=== PATIENT | female | born 1985 | race Caucasian/White ===

== ENCOUNTER 2017-10-29 09:46 | Emergency (ER) | payer OTHER ==
[2016-02-20 19:05] VITALS: BP 134/86
[~2017-10-29] VITALS: Ht 157.5 cm; Wt 79.4 kg
[~2017-10-29 09:46] MED LIST: ASPI-482 PO
[2017-10-29] MEDS ORDERED: CYCL-331 PO (10:31)
[2017-10-29] MEDS ORDERED: HYDR-971 PO (10:31)
[2017-10-29] MEDS ORDERED: IBUP800T19 PO (10:31)
--- NOTE | 2017-10-29 10:31 | PHYS DOC ---
Past History Past Medical History: No Pertinent History Past Surgical History: Tonsillectomy, Tubal ligation Smoking: Non-smoker Alcohol Use: Occasionally Drug Use: None Adult General Chief Complaint Chief Complaint: Neck Pain HPI HPI 32-year-old female patient states she woke up 3 days ago with pain in left side of her neck that getting worse with movement of her neck. Patient states she applied ice and heat and topical ointment without improvement of the pain and her pain gradually getting force. Patient states her pain increased from 2 without movement to 9 with movement of her neck. She denies fever and chills, injuries, focal neuro deficit, nausea and vomiting. Patient states she had right -sided neck pain several years ago that last for shortness of time. Patient denies . Review of Systems Review of Systems Constitutional: Denies fever or chills [] Eyes: Denies change in visual acuity, redness, or eye pain [] HENT: Denies nasal congestion or sore throat [] Respiratory: Denies cough or shortness of breath [] Cardiovascular: No additional information not addressed in HPI [] GI: Denies abdominal pain, nausea, vomiting, bloody stools or diarrhea [] : Denies dysuria or hematuria [] Musculoskeletal: Denies back pain or joint pain, reports neck pain [] Integument: Denies rash or skin lesions [] Neurologic: Denies headache, focal weakness or sensory changes [] Endocrine: Denies polyuria or polydipsia [] All other systems were reviewed and found to be within normal limits, except as documented in this note. Current Medications Current Medications Current Medications Medications (Trade) Dose Ordered Sig/[facility] Start Time Stop Time Status Last Admin Dose Admin Acetaminophen/ Hydrocodone Bitart (Lortab 5/325) 1 tab 1X ONCE 10/29/17 10:15 10/29/17 10:16 UNV Cyclobenzaprine HCl (Flexeril) 10 mg 1X ONCE 10/29/17 10:15 10/29/17 10:16 UNV Allergies Allergies Allergies Coded Allergies Type Severity Reaction Last Updated Verified No Known Drug Allergies 06/08/14 No Physical Exam Physical Exam Constitutional: Well developed, well nourished, mild distress, non-toxic appearance. [] HENT: Normocephalic, atraumatic, bilateral external ears normal, oropharynx moist, no oral exudates, nose normal. [] Eyes: PERRLA, EOMI, conjunctiva normal, no discharge. [] Neck: supple, no stridor, no midline tenderness, left cervical muscular spasm with limited range of motion secondary to pain. [] Cardiovascular:Heart rate regular rhythm, no murmur [] Lungs & Thorax: Bilateral breath sounds clear to auscultation [] Abdomen: Bowel sounds normal, soft, no tenderness, no masses, no pulsatile masses. [] Skin: Warm, dry, no erythema, no rash. [] Back: No tenderness, no CVA tenderness. [] Extremities: No tenderness, no cyanosis, no clubbing, ROM intact, no edema. [] Neurologic: Alert and oriented X 3, normal motor function, normal sensory function, no focal deficits noted. [] Psychologic: Affect normal, judgement normal, mood normal. [] EKG EKG [] Radiology/Procedures Radiology/Procedures [] Course & Med Decision Making Course & Med Decision Making Evaluation of patient in ER showed 32-year-old female patient with cervical muscle spasm and pain for 3 days without neuro deficit. Patient treated with Flexeril and hydrocodone and instructed to apply ice on her neck and follow with her primary care physician. I've spoken with the patient and/or caregivers. I've explained the patient's condition, diagnosis and treatment plan based on information available to me at this time. I've answered the patient's and/or caregivers questions and addressed any concerns. The patient and/or caregivers have a good understanding the patient's diagnosis, condition and treatment plan as can be expected at this point. Vital signs have been stabilized. The patient's condition is stable for discharge from the emergency department. The patient will pursue further outpatient evaluation with her primary care provider or other designated consulting physician as outlined in the discharge instructions. Patient and/or caregivers are agreeable to this plan of care and follow-up instructions have been explained in detail. The patient and/or caregivers have received these instructions in written format and expressed understanding of these discharge instructions. The patient and her caregivers are aware that if any significant change in condition or worsening of symptoms should prompt him to immediately return to this of the closest emergency department. If an emergent department is not readily available I would encourage him to call 911. Kelly Disclaimer Kelly Disclaimer This electronic medical record was generated, in whole or in part, using a voice recognition dictation system. Departure Departure: Impression: Primary Impression: Acute cervical myofascial strain Disposition: 01 HOME, SELF-CARE (At 1040) Condition: IMPROVED Referrals: TROY VAZQUEZ (PCP) Patient Instructions: Cervical Strain and Sprain with [facility] Additional Instructions: Drink plenty of liquids Follow-up with your primary care physician in 3-5 days Return to ER if not getting better Apply ice on the affected area Scripts Ibuprofen (IBUPROFEN) 800 Mg Tablet 1 TAB PO TID, #30 TAB Prov: CHRISTINA CAMPOS MD 10/29/17 Hydrocodone Bit/Acetaminophen (NORCO 5-325 TABLET) 1 Each Tablet 1 TAB PO PRN Q6HRS Y for PAIN, #10 TAB 0 Refills Prov: CHRISTINA CAMPOS MD 10/29/17 Cyclobenzaprine Hcl (CYCLOBENZAPRINE HCL) 10 Mg Tablet 1 TAB PO TID, #21 TAB Prov: CHRISTINA CAMPOS MD 10/29/17 CHRISTINA CAMPOS MD Oct 29, 2017 10:31
[2017-10-29] MEDS ORDERED: CYCLOBENZAPRINE 10 MG TABLET. PO ONE (10:35)
[2017-10-29] MEDS ORDERED: HYDROcodone/APAP 5/325MG 1 TAB TABLET PO ONE (10:35)
== END 2017-10-29 10:36 | disposition home or self-care (01) ==
LOC: ER 09:46
DX: S16.1XXA Strain of muscle, fascia and tendon at neck level, initial encounter (principal); X58.XXXA Exposure to other specified factors, initial encounter; Y93.89 Activity, other specified; Y99.8 Other external cause status; Y92.89 Other specified places as the place of occurrence of the external cause
CPT/HCPCS: 99283

== ENCOUNTER 2019-05-19 21:39 | Emergency (ER) | payer OTHER ==
[~2019-05-19] VITALS: Ht 157.5 cm; Wt 63.5 kg
[~2019-05-19 21:39] MED LIST changes: +CYCL-331 PO; +HYDR-3165 PO; +IBUP800T19 PO
[2019-05-19 21:50] VITALS: BP 168/95
[2019-05-19] MEDS ORDERED: MELO7.5T29 PO (21:58)
[2019-05-19] MEDS ORDERED: AMOX500T PO (21:58)
[2019-05-19] MEDS ORDERED: GUAI1TBM10 PO (21:59)
--- NOTE | 2019-05-19 21:59 | PHYS DOC ---
Past History Past Medical History: No Pertinent History Past Surgical History: Tonsillectomy, Tubal ligation Smoking: Non-smoker Alcohol Use: Occasionally Drug Use: None Adult General Chief Complaint Chief Complaint: EARACHE/EAR PAIN HPI HPI Patient is a 33-year-old female presents with bilateral ear pain that began yesterday. Getting worse over time. Right is worse than left with some fluid draining from the right ear. No recent swimming. Popping sensation with swallowing. Low-grade fever. No neck stiffness. No sick contacts. No nasal or sinus congestion. Minimal relief with acetaminophen. Symptoms are moderate in intensity.[] Review of Systems Review of Systems Constitutional: Denies fever or chills [] Eyes: Denies change in visual acuity, redness, or eye pain [] HENT: Denies nasal congestion or sore throat, see history of present illness [] Respiratory: Denies cough or shortness of breath [] Cardiovascular: No chest pain or palpitations[] GI: Denies abdominal pain, nausea, vomiting, bloody stools or diarrhea [] : Denies dysuria or hematuria [] Musculoskeletal: Denies back pain or joint pain [] Integument: Denies rash or skin lesions [] Neurologic: Denies headache, focal weakness or sensory changes [] Endocrine: Denies polyuria or polydipsia [] All other systems were reviewed and found to be within normal limits, except as documented in this note. Allergies Allergies Allergies Coded Allergies Type Severity Reaction Last Updated Verified No Known Drug Allergies 05/19/19 No Physical Exam Physical Exam Constitutional: Well developed, well nourished, no acute distress, non-toxic appearance. [] HENT: Normocephalic, atraumatic, bilateral external ears normal, no pain with tragus tug. Bilateral TMs are bulging with fluid behind the TMs. No mastoid tenderness. Oropharynx moist, no oral exudates, nose normal. [] Eyes: PERRLA, EOMI, conjunctiva normal, no discharge. [] Neck: Normal range of motion, no tenderness, supple, no stridor. No nuchal rigidity[] Cardiovascular:Heart rate regular rhythm, no murmur [] Lungs & Thorax: Bilateral breath sounds clear to auscultation [] Abdomen: Not examined. [] Skin: Warm, dry, no erythema, no rash. [] Back: No tenderness, no CVA tenderness. [] Extremities: No tenderness, no cyanosis, no clubbing, ROM intact, no edema. [] Neurologic: Alert and oriented X 3, normal motor function, normal sensory function, no focal deficits noted. [] Psychologic: Affect normal, judgement normal, mood normal. [] EKG EKG [] Radiology/Procedures Radiology/Procedures [] Course & Med Decision Making Course & Med Decision Making Pertinent Labs and Imaging studies reviewed. (See chart for details) ED course and medical decision making: Patient arrived, was placed in bed, and tolerated exam well. She was given initial dose of antibiotics in the emergency department. Findings were discussed with the patient who voiced understanding. All questions were answered, and she was discharged in improved condition. There is no evidence of meningitis or encephalitis. No evidence of mastoiditis. Nontoxic patient. No evidence of perforation of either TM. No evidence of otitis externa.[] Dragon Disclaimer Dragon Disclaimer This electronic medical record was generated, in whole or in part, using a voice recognition dictation system. Departure Departure: Impression: Primary Impression: Bilateral otitis media with effusion Disposition: HOME, SELF-CARE Condition: IMPROVED Referrals: TROY VAZQUEZ (PCP) Follow-up in 2 days Patient Instructions: Otitis Media with Effusion Additional Instructions: Follow-up with your primary care team in 2-3 days. Take the medications as prescribed. Return to the ER if worsening discomfort, fever of more than 101�, or any other concerns. Scripts Guaifenesin/Dextromethorphan (MUCINEX DM ER 1,200-60 MG TAB) 1 Each Tbmp.12hr 1 TAB PO BID for otitis media, #20 TAB Prov: TERESA ROBERT DO 05/19/19 Meloxicam (MELOXICAM) 7.5 Mg Tablet 7.5 MG PO DAILY for PAIN, #20 TAB Prov: TERESA ROBERT DO 05/19/19 Amoxicillin (AMOXICILLIN) 500 Mg Tablet 500 MG PO TID for otitis media for 10 Days, #30 TAB Prov: TERESA ROBERT DO 05/19/19 TERESA ROBERT DO May 19, 2019 21:59
[2019-05-19] MEDS ORDERED: AMOXICILLIN 250 MG CAPSULE PO ONE (22:30)
== END 2019-05-19 22:09 | disposition home or self-care (01) ==
LOC: ER 21:39
DX: H65.93 Unspecified nonsuppurative otitis media, bilateral (principal)
CPT/HCPCS: 99283